=== PATIENT | female | born 1995 | race Hispanic/Latino ===

== ENCOUNTER 2018-10-23 17:55 | Emergency (ER) | payer OTHER ==
[2018-10-23] MEDS ORDERED: TETANUS/DIPHTHERIA TOXOID [ADULT] 0.5 ML VIAL IM ONE (18:07)
[2018-10-23] MEDS ORDERED: LIDOCAINE HCL 1% 20 ML VIAL ONE (18:07)
== END 2018-10-23 18:42 | disposition home or self-care (01) ==
LOC: EDH 17:55
DX: S61.215A Laceration without foreign body of left ring finger without damage to nail, initial encounter (principal); Z79.899 Other long term (current) drug therapy; W26.0XXA Contact with knife, initial encounter; Y93.G3 Activity, cooking and baking; Y92.098 Other place in other non-institutional residence as the place of occurrence of the external cause; Y99.8 Other external cause status
CPT/HCPCS: 12001; 73130; 90471; 90714